=== PATIENT | female | born 1950 | race Caucasian/White ===

== ENCOUNTER 2016-09-11 10:32 | Outpatient (CLI) | payer MEDICARE, BC ==
[2016-09-11 11:30] LABS: Bilirubin Negative (Negative); Blood, Urine Small (Negative); Clarity Cloudy (Clear); Glucose, Urine (Dipstick) Negative (Negative); Leukocyte Negative (Negative); Nitrite Positive (Negative); Protein, Urine (Dipstick) Negative (Neg-Trace); Specific Gravity, Urine 1.015 (1.005-1.030); pH, Urine 6.5 (5.0-9.0)
[2016-09-11 11:55] LABS: Bacteria/HPF 3+ HPF (None Seen); RBC/HPF 0-3 HPF (0-3); Squamous Epithelial 0-3 HPF (0-3); WBC/HPF 0-3 HPF (0-3)
[2016-09-11 12:06] LABS: ALT (SGPT) 13 U/L (8-55); AST (SGOT) 12 U/L (5-34); Albumin 4.6 g/dL (3.4-4.8); Alkaline Phosphatase 73 U/L (40-150); Anion Gap 14 mmol/L (10-20); BUN (Urea Nitrogen) 11 mg/dL (9.8-20.1); Calc. Creatinine Clearance 0 mL/min (70-130); Calcium 9.4 mg/dL (7.8-10.44); Carbon Dioxide 28 mmol/L (23-31); Cardiac Risk 5.7 (Less than 4.5); Chloride 105 mmol/L (98-107); Cholesterol 246 mg/dl (< 200 Desired); Estimated GFR-MDRD 71; Globulin 2.6 g/dL (2.4-3.5); Glucose 85 mg/dL (80-115); HDL Cholesterol 43 mg/dL (>60 Neg Risk); LDL Cholesterol, Calculated 173 mg/dL; Potassium 4.2 mmol/L (3.5-5.1); Protein, Total 7.2 g/dL (6.0-8.3); Sodium 143 mmol/L (136-145); Triglycerides 151 mg/dL (Less than 150)
[2016-09-11 12:34] LABS: #Eosinphils 0.2 thou/uL (0.0-0.7); #Lymphocytes 1.9 thou/uL (1.20-3.40); #Monocytes 0.4 thou/uL (0.11-0.59); #Neutrophils 3.4 thou/uL (1.40-6.50); %Basophils 0.6 % (0.0-1.0); %Eosinophils 3.1 % (0.0-10.0); %Lymphocytes 32.2 % (21.0-51.0); Hemoglobin 17.1 g/dL (12.0-16.0); Mean Corpuscular HGB CONC 34.4 g/dL (32.0-36.0); Mean Corpuscular Hemoglobin 35.1 pg (27.0-31.0); Mean Platelet Volume 7.6 fL (7.4-10.4); Platelet Count 142 thou/uL (130-400); Red Blood Cell (RBC) Count 4.87 mill/uL (4.20-5.40); White Blood Cell (WBC) Count 5.9 thou/uL (4.8-10.8)
[2016-09-11 13:27] LABS: MDiff Complete? YES; Macrocytosis SLIGHT = 6-15 cells (100X) (0-5/hpf); PLT Morphology Comment Appears Adequate
== END 2016-09-11 10:33 | disposition home or self-care (01) ==
LOC: HPCALD 10:32
PROVIDERS: ATTEND Family Medicine
DX: E78.5 Hyperlipidemia, unspecified (principal); I10 Essential (primary) hypertension; R82.90 Unspecified abnormal findings in urine
CPT/HCPCS: 36415; 80053; 80061; 81001; 85025

== ENCOUNTER 2016-11-12 11:33 | Outpatient (CLI) | payer MEDICARE, BC | END 2016-11-12 11:34 | disposition home or self-care (01) | LOC: HPCALD 11:33 | PROVIDERS: ATTEND Family Medicine | DX: N39.0 Urinary tract infection, site not specified (principal) | CPT/HCPCS: 87077; 87086; 87186 ==

== ENCOUNTER 2016-11-13 10:04 | Outpatient (CLI) | payer MEDICARE, BC ==
--- NOTE | 2016-11-13 17:46 | ULT ---
ABDOMINAL ULTRASOUND: 11/13/16 Comparison is made with the prior ultrasound of 07/31/15. The liver is 14.7 cm in oblique sagittal length with no space occupying lesions seen. There are no d ilated intrahepatic ducts. The gallbladder contains no evidence of stones or wall thickening. The co mmon bile duct, however, measures 8 to 9 mm in caliber which is large. No focal pancreatic lesions w ere seen, though not all sections were seen equally well. The right kidney is 10.1 cm in length and the left kidney is 10.5 cm. Both appear normal. The spleen is normal in size. Regarding the patient's abdominal aorta, there is a distal abdominal aortic aneurysm below the level of the renal arteries. It extends to but not beyond the bifurcation. It measures 3.2 cm in width, c ompared to 2.8 cm previously. The proximal and mid abdominal aorta had normal measurements for age. IMPRESSION: 3.2 cm distal abdominal aortic aneurysm. Slightly larger than in 2016 when it measured 2.8 cm. POS: HOME
== END 2016-11-13 10:05 | disposition home or self-care (01) ==
LOC: BURULT 10:04
PROVIDERS: ATTEND Family Medicine
DX: I71.4 Abdominal aortic aneurysm, without rupture (principal)
CPT/HCPCS: 76700

== ENCOUNTER 2017-11-19 09:16 | Outpatient (CLI) | payer MEDICARE, BC ==
--- NOTE | 2017-11-19 19:57 | ULT ---
ABDOMINAL AORTA ULTRASOUND 11/19/17 Ultrasonography of the abdominal aorta was performed and compared with the 11/13/16 study. A 2016 exam showed a distal abdominal aortic aneurysm that was 2.8 cm in width. In October 2016, it was 3.2 cm in w idth. The size of the aneurysm has continued to increase somewhat. Today's exam shows the maximal width to be about 4.2 cm. It is about 7 cm in length and does not extend beyond the bifurcation. The diameter of the proximal aorta was no more than 2.8 cm and mid abdominal aorta 3.5 cm. Mural thrombus is prese nt in the aneurysm but there is still ample lumen that is patent. IMPRESSION: Further dilation of the distal abdominal aortic aneurysm now measuring a maximum of 4.2 cm in diamete r, definite increase since the October study last year. Code T POS: HOME
== END 2017-11-19 09:17 | disposition home or self-care (01) ==
LOC: BURULT 09:16
PROVIDERS: ATTEND Family Medicine
DX: I71.4 Abdominal aortic aneurysm, without rupture (principal)
CPT/HCPCS: 76775

== ENCOUNTER 2018-01-14 10:08 | Outpatient (CLI) | payer MEDICARE, BC ==
--- NOTE | 2018-01-14 21:05 | ULT ---
LEFT BREAST ULTRASOUND: 01/14/18 Ultrasonography over an area of interest was performed. There is an oblong hypodensity just inferior to the areolar measuring 1.9 x 0.7 x 2.1 cm. The patient states that it uses pus and so is presumed t o be an abscess. From an ultrasonographic standpoint, it could be an abscess or mass, however, there is no blood flow in it. IMPRESSION: Presumed ovoid-shaped abscess. See above. POS: HOME
== END 2018-01-14 10:09 | disposition home or self-care (01) ==
LOC: BURULT 10:08
PROVIDERS: ATTEND Family Medicine
DX: N61.1 Abscess of the breast and nipple (principal)

== ENCOUNTER 2018-01-21 10:29 | Outpatient (CLI) | payer MEDICARE, BC | END 2018-01-21 10:30 | disposition home or self-care (01) | LOC: BURCT 10:29 | PROVIDERS: ATTEND Internal Medicine Cardiovascular Disease | DX: Z01.818 Encounter for other preprocedural examination (principal); I71.4 Abdominal aortic aneurysm, without rupture | CPT/HCPCS: 36415; 74175; 82565 ==

== ENCOUNTER 2018-08-05 09:45 | Outpatient (CLI) | payer MEDICARE, BC ==
--- NOTE | 2018-08-05 17:57 | ULT ---
GALLBLADDER ULTRASOUND: 08/05/2018 HISTORY/TECHNIQUE: Ultrasonography of the right upper quadrant is performed for evaluation of pain. FINDINGS: The liver is minimally generous in size, measuring 16.2 cm in oblique sagittal length. It is somewha t echodense, so the possibility of fatty infiltration is raised. There are no dilated ducts or annette s within it. The visible portions of the pancreas are unremarkable. The gallbladder has a trace of sludge in the neck, but no stones or wall thickening. The common bile duct, however, is a bit large, at 7 mm in caliber. No intrahepatic ductal dilation is seen, however. The right kidney appears nor mal and is 9.9 cm in length. IMPRESSION: 1. Slight enlargement of the common bile duct, significance unknown. Depending upon the clinical sy mptoms, a CT might be needed to clear the area. 2. Minimal sludge in the gallbladder, probably not significant. 3. Borderline hepatic size with possible fatty infiltration. CODE T POS: HOME
== END 2018-08-05 09:46 | disposition home or self-care (01) ==
LOC: BURULT 09:45
PROVIDERS: ATTEND Internal Medicine Gastroenterology
DX: I71.9 Aortic aneurysm of unspecified site, without rupture (principal); K21.9 Gastro-esophageal reflux disease without esophagitis; R19.4 Change in bowel habit; R11.2 Nausea with vomiting, unspecified; R10.9 Unspecified abdominal pain; Q44.5 Other congenital malformations of bile ducts
CPT/HCPCS: 76705

== ENCOUNTER 2018-08-26 09:47 | Outpatient (CLI) | payer MEDICARE, BC ==
[2018-08-26] MEDS ORDERED: Iopamidol 370 76% 125 ML VIAL FS ONE (11:42)
--- NOTE | 2018-08-26 19:31 | CT ---
CT ANGIO OF THE ABDOMEN AND PELVIS WITH AND WITHOUT CONTRAST 08/26/18 Comparison is made with the prior study dated 05/20/18 from [facility] in [place]. Axial slices were acquired after giving a bolus of IV contrast and then coronal and sagittal reconstructions were done . An initial noncontrast scan of the abdomen and pelvis was done as well. There is good opacification of the abdominal aorta. Again noted is the known abdominal aortic aneurysm that starts a few centime ters below the renal arteries and then extends to but not beyond the bifurcation of the aorta. The AP diameter of the aneurysm was once again measured at 4.4 cm, so there has been no belt changer time. T he celiac artery, SMA and JUSTINE can all be seen originating from the aorta and filling well with contra st. Both renal arteries fill well. The lung bases are clear except for some basilar atelectasis or scarring. There are no effusions. The liver and spleen seem a bit generous in size but unchanged over the interval. No space occupying dis ease was seen in them, the pancreas, the adrenal glands, or the kidneys. The pelvic slices showed no pelvic masses, inflammatory changes, or free fluid. Some sigmoid diverti cula were evident as well as diverticula of the left colon in general. IMPRESSION: 1. Infrarenal abdominal aortic aneurysm with no significant change since the prior scan. Maximal AP diameter measured at 4.4 cm just as before. 2. No other acute abdominal or pelvic findings. COMMENT: If future scans are planned, one might consider if there is a true need for them to be done with and without contrast. One could decrease the radiation burden to the patient by doing only a s can with contrast, as the additional info gleaned from a non-contrast scan is probably small. POS: HOME
== END 2018-08-26 09:48 | disposition home or self-care (01) ==
LOC: BURCT 09:47
PROVIDERS: ATTEND Thoracic Surgery (Cardiothoracic Vascular Surgery)
DX: Z01.812 Encounter for preprocedural laboratory examination (principal); I71.4 Abdominal aortic aneurysm, without rupture
CPT/HCPCS: 74174; 82565; Q9967

== ENCOUNTER 2019-03-16 09:56 | Outpatient (CLI) | payer MEDICARE, BC ==
--- NOTE | 2019-03-16 15:33 | CT ---
CT ABDOMEN AND PELVIS WITH CONTRAST: DATE: 03/16/2019. FINDINGS: Comparison is made with the prior CT angio of the abdomen dated 08/26/2018. The patient has a known in frarenal abdominal aortic aneurysm. Today's study shows a slight increase in the size of the infrarenal abdominal aortic aneurysm since t August 2018 scan. Slices were selected on today's study and the August study exactly in the same anatom ical location, L3 levels. Measurements found were as follows: September 07, 2018: 4.4 cm AP diameter, 4.5 cm wide. Today: 4.7 cm AP diameter, 4.9 cm wide. Thus, the height and width of the aneurysm measured in the transverse plane has increased by 0.3 to 0 .4 cm over the 6-month interval. The total superior inferior extent does not appear to have changed significantly. The aneurysm does not extend beyond the bifurcation of the aorta, though there is foc al dilation of the right common iliac artery just above its termination into internal and external br anches. The transverse diameter of the vessel at that point is 1.7 cm. The celiac artery, SMA, JUSTINE, and renal arteries all seem to fill normally. Elsewhere, the lung bases are clear except for dependent atelectasis. The liver, pancreas, gallbladd er, and kidneys showed no acute changes. The spleen is rather long and narrow, being 16 cms from top to bottom, but changes over time are only slight. The left adrenal gland is slightly bulbous, but n o different than before. There is no dilation of bowel or inflammatory streaking around bowel. The cecum and much of the righ t colon seems to have some mild chronic wall thickening, though it looks no different than the prior scan. Diverticulosis is present in this patient, but no diverticulitis was seen. There is no free a ir or free fluid. CT of the pelvis shows no pelvic masses, free fluid, or inflammatory change. Some mild degenerative changes are seen in the lumbar spine. IMPRESSION: 1. Infrarenal abdominal aortic aneurysm with slight dilation since the last study. See comparison o f measurements above. 2. The patient's spleen is rather long and narrow with the superior inferior extent measuring 16 cm. This is similar to the prior exam. Looking at a 2018 study, it was about 15 cm. Thus, it seems re asonably stable over time, though prominent in size. 3. Chronic wall thickening of the right colon. This can also be seen back to 2018 studies and reall y has not changed at all. POS: HOME
== END 2019-03-16 09:57 | disposition home or self-care (01) ==
LOC: BURCT 09:56
PROVIDERS: ATTEND Thoracic Surgery (Cardiothoracic Vascular Surgery)
DX: Z01.818 Encounter for other preprocedural examination (principal); I71.4 Abdominal aortic aneurysm, without rupture; K63.89 Other specified diseases of intestine; D73.89 Other diseases of spleen
CPT/HCPCS: 36415; 74177; 82565

== ENCOUNTER 2019-10-12 09:50 | Outpatient (CLI) | payer MEDICARE, BC ==
--- NOTE | 2019-10-13 07:10 | CT ---
CT ANGIO OF THE ABDOMEN AND PELVIS WITH CONTRAST: 10/12/[address] of the abdomen was performed and compared with a 08/26/18 study. The patient has a known abdominal aortic aneurysm. There is very good opacification of the aorta. Again noted is a large infrarenal abdominal aortic ane urysm. It begins just below the level of the renal arteries and extends all the way to the bifurcatio n. The iliac arteries are not enlarged. There is a large amount of pleural thrombus within it. This a neurysm has grown since last year. It now measures about 5 cm in diameter compared to 4.5 cm last yea r. The celiac and SMA fill normally. The renal arteries both fill. The JUSTINE feels very weakly. There is a 2.5 cms area of asymmetric tissue in the left breast on the top most slice. While this ma y just be tissue asymmetry, if the patient has not not had a mammogram in recent times, this might be considered to be sure there is no pathology here. The lung bases show some dependent atelectasis. The liver showed no acute changes and is mildly generous in size but no different than before. The sp luis miguel; however, has become even larger. Previously it was about 16 cm in length. Today is it just over 19 cm long. Better seen today than before, there does appear to be a 1.2 cm nodule in the left adrenal gland. I b elieve there are some fatty elements in it making it likely that it is an adenoma. It does not appear to have changed much over time. The pancreas and gallbladder are unremarkable. The kidneys show no m ass or hydronephrosis. CT of the pelvis shows no pelvic masses, fluid collections, or acute inflammatory changes. Some diver ticula were noted in the colon. There is some mild chronic thickening of the wall of the cecum and ri ght colon, but it is no different than last year. IMPRESSION: 1. 5 cm infrarenal abdominal aortic aneurysm. It has increased in diameter by at least 0.5 cm ov er the interval. 2. Marked splenomegaly which has worsened since last year. 3. Probable small 1.2 cm left adrenal mass with little change of address clerk time. The odds of its signifi cance are somewhat low. Given some fatty elements being detected and no growth over the last year, I am not sure if doing a dedicated adrenal protocol scan is necessary. I would merely monitor it on the patient's subsequent scans that deal with her aneurysm. 4. 2.5 cms area of asymmetric tissue in the left breast, not seen on the prior scan, but today's sca n may start slightly higher than the previous one. I would recommend following this up to be sure th ere is no pathology here. POS: HOME
== END 2019-10-12 09:51 | disposition home or self-care (01) ==
LOC: BURCT 09:50
PROVIDERS: ATTEND Thoracic Surgery (Cardiothoracic Vascular Surgery)
DX: I71.4 Abdominal aortic aneurysm, without rupture (principal); R16.1 Splenomegaly, not elsewhere classified; N64.89 Other specified disorders of breast
CPT/HCPCS: 74174; 82565

== ENCOUNTER 2020-03-30 10:08 | Outpatient (CLI) | payer MEDICARE, BC ==
[2020-03-30] MEDS ORDERED: Iopamidol 370 76% 100 ML VIAL ONE (11:40)
--- NOTE | 2020-03-30 13:53 | CT ---
CT AORTIC DISSECTION PROTOCOL 03/30/20 COMPARISON: Comparison is made with the CT angio of the abdomen and pelvis dated 10/12/19. There is very good opacification of the aorta, as well as the pulmonary vessels. As before, an infrar enal abdominal aortic aneurysm is present that extends to but not beyond the bifurcation of the aorta . The widest dimensions measured today were about 5 cm in AP diameter and about 5.4 cm in width. On t he prior scan, the maximal dimensions were 5 cm AP and 5.1 cm in width. Thus, it may have increased i n size very slightly. As before, there does appear to be a very slight false channel flow within the a portion of the thrombus on the left side. The appearance is similar to before. The celiac, SMA, JUSTINE and renal arteries all appear to fill normally as do the common iliac arteries. Both internal iliac arteries fill appropriately. The thoracic aorta shows arteriosclerotic change but no aneurysm or dissection. No portion of the aor ta shows signs of dissection. There is good filling of the pulmonary arteries which show no filling d efects to suggest emboli. Of considerable note, is a large amount of mediastinal adenopathy, located just to the left of the ao rtic arch. No prior scan covers this area, so there is no comparison available. The largest nodes trey sure 2.5 cm in size. I do not see significant amounts of subcarinal adenopathy or inferior tracheobro nchial adenopathy. The lungs show cystic changes throughout, particularly in the apices, that are pre sumed to be emphysematous in nature. There is diffuse prominence of markings without any focal infilt rate, pulmonary mass or effusion. As was mentioned on the prior study, there is an area of asymmetric breast tissue in the left breast. Today, it measures about 2.8 cm in size. If this has not been purs ued, it should be. It was not seen completely on the prior study. Previously, it measures about 2.4 t o 2.5 cm in size, but on an image that did cover all of it. The liver and spleen show no space occupying lesions. The pancreas was unremarkable. No stones were s een in the gallbladder. There may be some mild increase in nodes about the splenic hilum, but I canno t be sure if these are small nodes or slightly dilated blood vessels. The kidneys show no mass or hyd ronephrosis. The visible areas of bowel show no dilation to suggest obstruction. Some scattered diver ticula are seen in the colon. There might be some chronic thickening in the lower right colon. IMPRESSION: 1. Large infrarenal aortic aneurysm that seems slightly wider (5.4 cm) than on the prior exam (5 .1 cm). 2. No evidence of aortic dissection or pulmonary embolism. 3. Significant mediastinal adenopathy located just to the left of the aortic arch. 4. Asymmetric tissue in the left breast as mentioned previously. Cannot rule out a mass. If this has not been investigated further, I strongly recommend that one should do so. Code T POS: HOME
== END 2020-03-30 10:09 | disposition home or self-care (01) ==
LOC: BURCT 10:08
PROVIDERS: ATTEND Thoracic Surgery (Cardiothoracic Vascular Surgery)
DX: I71.4 Abdominal aortic aneurysm, without rupture (principal); R59.0 Localized enlarged lymph nodes; N64.89 Other specified disorders of breast
CPT/HCPCS: 71275; 74174; Q9967

== ENCOUNTER 2020-05-30 11:25 | Outpatient (CLI) | payer MEDICARE, BC ==
--- NOTE | 2020-05-30 19:51 | RAD ---
CHEST TWO VIEWS: 05/30/20 Comparison is made with the 09/15/08 study. In the interval, there is a new contour abnormality in the aorticopulmonary window measuring about 2. 7 cm in size. Given the recent CT PET scan, it is probably an enlarged node. There is perhaps some sl ight prominence of the right lung hilum. There could be a little adenopathy here, however, the overal l findings show clear lungs with no gross pulmonary nodules and no effusions. The heart size is tim l. IMPRESSION: Suspicion of an enlarged node in the aorticopulmonary window. POS: HOME
== END 2020-05-30 11:26 | disposition home or self-care (01) ==
LOC: BUREKG 11:25
PROVIDERS: ATTEND Thoracic Surgery (Cardiothoracic Vascular Surgery)
DX: R59.0 Localized enlarged lymph nodes (principal)
CPT/HCPCS: 71046; 93005; 93010

== ENCOUNTER 2020-06-30 11:15 | Outpatient (CLI) | payer MEDICARE, BC ==
[2020-06-30 12:18] LABS: #Eosinphils 0.1 thou/uL (0.0-0.7); #Lymphocytes 0.8 thou/uL (1.20-3.40); #Monocytes 0.4 thou/uL (0.11-0.59); #Neutrophils 4.3 thou/uL (1.40-6.50); %Basophils 0.8 % (0.0-1.0); %Eosinophils 1.6 % (0.0-10.0); %Lymphocytes 13.6 % (21.0-51.0); %Monocytes 7.7 % (0.0-10.0); %Neutrophils 76.3 % (42.0-75.0); Hemoglobin 15.9 g/dL (12.0-16.0); Mean Corpuscular HGB CONC 33.7 g/dL (32.0-36.0); Mean Corpuscular Hemoglobin 33.5 pg (27.0-31.0); Mean Corpuscular Volume 99.4 fL (78.0-98.0); Mean Platelet Volume 8.8 fL (7.4-10.4); Platelet Count 97 thou/uL (130-400); RBC Distribution Width 12.1 % (11.5-14.5); Red Blood Cell (RBC) Count 4.74 mill/uL (4.20-5.40); White Blood Cell (WBC) Count 5.6 thou/uL (4.8-10.8)
[2020-06-30 12:19] LABS: MDiff Complete? YES
[2020-06-30 12:29] LABS: ALT (SGPT) 32 U/L (8-55); AST (SGOT) 19 U/L (5-34); Albumin 4.4 g/dL (3.4-4.8); Alkaline Phosphatase 60 U/L (40-110); Anion Gap 15 mmol/L (10-20); BUN (Urea Nitrogen) 8 mg/dL (9.8-20.1); Bilirubin, Total 0.7 mg/dL (0.2-1.2); Calc. Creatinine Clearance 0 mL/min (70-130); Calcium 9.5 mg/dL (7.8-10.44); Carbon Dioxide 30 mmol/L (23-31); Chloride 101 mmol/L (98-107); Glucose 116 mg/dL (80-115); Potassium 4.1 mmol/L (3.5-5.1); Protein, Total 6.4 g/dL (5.8-8.1); Sodium 142 mmol/L (136-145)
[2020-06-30 23:40] LABS: SARS-CoV-2 PCR by NAA Not Detected (NotDetected)
== END 2020-06-30 11:16 | disposition home or self-care (01) ==
LOC: BUREKG 11:15
PROVIDERS: ATTEND Surgery
DX: Z01.818 Encounter for other preprocedural examination (principal); K38.8 Other specified diseases of appendix; Z20.822 Contact with and (suspected) exposure to COVID-19
CPT/HCPCS: 36415; 80053; 85025; 87635; 93005; 93010; U0003; U0005

== ENCOUNTER 2020-07-05 20:20 | Emergency (ER) | payer MEDICARE, BC ==
[~2020-07-05 20:20] MED LIST: Iopamidol 370 76% 100 ML VIAL ONE
[2020-07-05] MEDS ORDERED: Ondansetron PF 4 MG/2 ML Vial ONE ×2 (21:08→22:43)
[2020-07-05] MEDS ORDERED: Fentanyl 100 MCG/2 ML VIAL ONE (21:08)
[2020-07-05 21:16] LABS: #Basophils 0.1 thou/uL (0.0-0.2); #Lymphocytes 0.5 thou/uL (1.20-3.40); #Monocytes 0.7 thou/uL (0.11-0.59); #Neutrophils 10.3 thou/uL (1.40-6.50); %Basophils 0.5 % (0.0-1.0); %Lymphocytes 4.4 % (21.0-51.0); %Monocytes 5.6 % (0.0-10.0); %Neutrophils 89.5 % (42.0-75.0); Hemoglobin 17.2 g/dL (12.0-16.0); Mean Corpuscular HGB CONC 34.4 g/dL (32.0-36.0); Mean Corpuscular Hemoglobin 33.9 pg (27.0-31.0); Mean Corpuscular Volume 98.5 fL (78.0-98.0); Mean Platelet Volume 8.6 fL (7.4-10.4); Platelet Count 96 thou/uL (130-400); RBC Distribution Width 11.8 % (11.5-14.5); Red Blood Cell (RBC) Count 5.07 mill/uL (4.20-5.40); White Blood Cell (WBC) Count 11.5 thou/uL (4.8-10.8)
[2020-07-05 21:17] LABS: MDiff Complete? YES
[2020-07-05 21:23] LABS: ALT (SGPT) 60 U/L (8-55); AST (SGOT) 41 U/L (5-34); Albumin 4.7 g/dL (3.4-4.8); Alkaline Phosphatase 72 U/L (40-110); Anion Gap 16 mmol/L (10-20); BUN (Urea Nitrogen) 7 mg/dL (9.8-20.1); Bilirubin, Total 1.1 mg/dL (0.2-1.2); Calc. Creatinine Clearance 0 mL/min (70-130); Calcium 9.3 mg/dL (7.8-10.44); Carbon Dioxide 26 mmol/L (23-31); Chloride 102 mmol/L (98-107); Globulin 2.6 g/dL (2.4-3.5); Glucose 222 mg/dL (80-115); Lipase 13 U/L (8-78); Potassium 3.6 mmol/L (3.5-5.1); Protein, Total 7.3 g/dL (5.8-8.1); Sodium 140 mmol/L (136-145)
[2020-07-05] MEDS ORDERED: HYDROmorphone 0.5 MG/0.5 ML SYRINGE ONE (23:43)
== END 2020-07-06 00:15 | disposition home or self-care (01) ==
LOC: BURERS 20:20
DX: I71.4 Abdominal aortic aneurysm, without rupture (principal); G89.18 Other acute postprocedural pain; I10 Essential (primary) hypertension
CPT/HCPCS: 71045; 74177; 80053; 83605; 83690; 84484; 85025; 93005; 94760; 96374; 96375; 96376; J1170; J2405; J3010; Q9967

== ENCOUNTER 2020-07-21 10:07 | Outpatient (CLI) | payer MEDICARE, BC | END 2020-07-21 10:08 | disposition home or self-care (01) | LOC: BURCT 10:07 | PROVIDERS: ATTEND Surgery | DX: R10.11 Right upper quadrant pain (principal); I71.3 Abdominal aortic aneurysm, ruptured; K63.89 Other specified diseases of intestine; R91.8 Other nonspecific abnormal finding of lung field; J90 Pleural effusion, not elsewhere classified | CPT/HCPCS: 74177 ==

== ENCOUNTER 2020-10-10 08:55 | Outpatient (CLI) | payer MEDICARE, BC ==
[2020-10-10] MEDS ORDERED: Iopamidol 370 76% 100 ML VIAL ONE (12:59)
== END 2020-10-10 08:56 | disposition home or self-care (01) ==
LOC: BURCT 08:55
PROVIDERS: ATTEND Clinical Nurse Specialist Adult Health
DX: I71.4 Abdominal aortic aneurysm, without rupture (principal)
CPT/HCPCS: 74174; Q9967

== ENCOUNTER 2021-01-13 11:40 | Emergency (ER) | payer MEDICARE, BC ==
[2021-01-13 23:44] LABS: SARS-CoV-2 PCR by NAA Not Detected (NotDetected)
== END 2021-01-13 12:26 | disposition home or self-care (01) ==
LOC: BURERS 11:40
DX: I10 Essential (primary) hypertension (principal); E78.5 Hyperlipidemia, unspecified; K57.92 Diverticulitis of intestine, part unspecified, without perforation or abscess without bleeding; F17.210 Nicotine dependence, cigarettes, uncomplicated; Z20.822 Contact with and (suspected) exposure to COVID-19; Z86.79 Personal history of other diseases of the circulatory system
CPT/HCPCS: U0003; U0005; 99283

== ENCOUNTER 2021-03-14 08:56 | Outpatient (CLI) | payer MEDICARE, BC | END 2021-03-14 08:57 | disposition home or self-care (01) | LOC: BURCT 08:56 | PROVIDERS: ATTEND Family Medicine | DX: R10.10 Upper abdominal pain, unspecified (principal); Z86.79 Personal history of other diseases of the circulatory system | CPT/HCPCS: 74177 ==

== ENCOUNTER 2021-03-28 11:26 | Outpatient (CLI) | payer MEDICARE, BC | END 2021-03-28 11:27 | disposition home or self-care (01) | LOC: BURCT 11:26 | PROVIDERS: ATTEND Family Medicine | DX: R07.81 Pleurodynia (principal); R59.0 Localized enlarged lymph nodes | CPT/HCPCS: 71260 ==

== ENCOUNTER 2021-04-20 11:12 | Emergency (ER) | payer MEDICARE, BC ==
[2021-04-20] MEDS ORDERED: traMADol HCl 50 MG TAB ONE (12:24)
[2021-04-20] MEDS ORDERED: Ibuprofen 800 MG TAB ONE (12:25)
[2021-04-20 12:45] LABS: Anion Gap 14 mmol/L (10-20); BUN (Urea Nitrogen) 10 mg/dL (9.8-20.1); Calc. Creatinine Clearance 0 mL/min (70-130); Carbon Dioxide 26 mmol/L (23-31); Chloride 105 mmol/L (98-107); Potassium 3.9 mmol/L (3.5-5.1); Sodium 141 mmol/L (136-145)
[2021-04-20 12:46] LABS: ALT (SGPT) 16 U/L (8-55); AST (SGOT) 16 U/L (5-34); Albumin 4.3 g/dL (3.4-4.8); Alkaline Phosphatase 77 U/L (40-110); Bilirubin, Total 1.1 mg/dL (0.2-1.2); Calcium 9.7 mg/dL (7.8-10.44); Globulin 2.1 g/dL (2.4-3.5); Glucose 95 mg/dL (80-115); Protein, Total 6.4 g/dL (5.8-8.1)
[2021-04-20 12:48] LABS: #Basophils 0.1 thou/uL (0.0-0.2); #Eosinphils 0.1 thou/uL (0.0-0.7); #Monocytes 0.4 thou/uL (0.11-0.59); #Neutrophils 3.4 thou/uL (1.40-6.50); %Eosinophils 2.5 % (0.0-10.0); %Lymphocytes 20.2 % (21.0-51.0); %Monocytes 7.9 % (0.0-10.0); %Neutrophils 68.4 % (42.0-75.0); Hemoglobin 14.6 g/dL (12.0-16.0); Mean Corpuscular HGB CONC 33.3 g/dL (32.0-36.0); Mean Corpuscular Hemoglobin 32.1 pg (27.0-31.0); Mean Corpuscular Volume 96.4 fL (78.0-98.0); Mean Platelet Volume 9.3 fL (7.4-10.4); Platelet Count 65 thou/uL (130-400); Platelet Morphology Comment Appears Decreased; RBC Distribution Width 12.9 % (11.5-14.5); Red Blood Cell (RBC) Count 4.56 mill/uL (4.20-5.40)
[2021-04-20 12:58] LABS: MDiff Complete? YES
[2021-04-20 13:05] LABS: Bilirubin Negative (Negative); Blood, Urine Negative (Negative); Clarity Clear (Clear); Glucose, Urine (Dipstick) Negative (Negative); Ketone, Urine Negative (Negative); Leukocyte Negative (Negative); Nitrite Negative (Negative); Protein, Urine (Dipstick) Negative (Neg-Trace); Urobilinogen 0.2 mg/dL (Less than 2); pH, Urine 6.5 (5.0-9.0)
== END 2021-04-20 13:30 | disposition home or self-care (01) ==
LOC: BURERS 11:12
DX: B09 Unspecified viral infection characterized by skin and mucous membrane lesions (principal); I10 Essential (primary) hypertension; E78.5 Hyperlipidemia, unspecified; F17.210 Nicotine dependence, cigarettes, uncomplicated; Z79.82 Long term (current) use of aspirin
CPT/HCPCS: 36415; 80053; 81003; 85025; 86140; 99283

== ENCOUNTER 2021-10-26 09:03 | Outpatient (CLI) | payer MEDICARE, BC ==
[2021-10-26] MEDS ORDERED: Iopamidol 370 76% 100 ML VIAL FS ONE (09:04)
== END 2021-10-26 09:04 | disposition home or self-care (01) ==
LOC: BURCT 09:03
PROVIDERS: ATTEND Physician Assistant Medical
DX: R10.32 Left lower quadrant pain (principal); R10.11 Right upper quadrant pain; R19.4 Change in bowel habit; K76.0 Fatty (change of) liver, not elsewhere classified; D69.6 Thrombocytopenia, unspecified; R16.1 Splenomegaly, not elsewhere classified; R59.0 Localized enlarged lymph nodes; I74.5 Embolism and thrombosis of iliac artery; K57.30 Diverticulosis of large intestine without perforation or abscess without bleeding; Z86.79 Personal history of other diseases of the circulatory system; Z85.09 Personal history of malignant neoplasm of other digestive organs; Z95.828 Presence of other vascular implants and grafts
CPT/HCPCS: 74177; Q9967

== ENCOUNTER 2022-01-01 10:06 | Outpatient (CLI) | payer MEDICARE, BC | END 2022-01-01 10:07 | disposition home or self-care (01) | LOC: BUREKG 10:06 | PROVIDERS: ATTEND Surgery | DX: Z01.818 Encounter for other preprocedural examination (principal); K80.20 Calculus of gallbladder without cholecystitis without obstruction; Z20.822 Contact with and (suspected) exposure to COVID-19 | CPT/HCPCS: 93005; 93010; U0003; U0005 ==

== ENCOUNTER 2022-04-17 16:38 | Inpatient (IN) | payer MEDICARE, BC ==
[2022-04-17] MEDS ORDERED: PYRIDOXINE HCL 50 MG PO SCH (21:00)
[2022-04-17] MEDS: Thiamine 100 MG TAB PO SCH (21:45)
[2022-04-17] MEDS: Multivit, Therapeutic 1 TAB PO SCH (21:46)
[2022-04-17] MEDS: Folic Acid 1 MG TAB PO SCH (21:46)
[2022-04-18] MEDS: NIFEdipine XL 30 MG TAB PO SCH ×2 (08:53→20:24)
[2022-04-18] MEDS: Cyanocobalamin (Vitamin B-12) 1,000 MCG TAB PO SCH (08:53)
[2022-04-18] MEDS: Losartan 25 MG TAB PO SCH (08:53)
[2022-04-18] MEDS: Aspirin 81 mg Enteric Coated Tablet PO SCH (08:53)
[2022-04-18] MEDS ORDERED: FLU VACC QS2022-23(65YR UP)/PF 240 MCG/0.7 ML SYRINGE IM ONE (09:00)
[2022-04-18] MEDS: Thiamine 100 MG TAB PO SCH (20:23)
[2022-04-18] MEDS: Multivit, Therapeutic 1 TAB PO SCH (20:23)
[2022-04-18] MEDS: Folic Acid 1 MG TAB PO SCH (20:24)
[2022-04-18] MEDS: Acetaminophen 325 MG TAB PO PRN (20:45)
[2022-04-19 05:41] LABS: ALT (SGPT) 13 U/L (8-55); AST (SGOT) 12 U/L (5-34); Albumin 3.8 g/dL (3.4-4.8); Alkaline Phosphatase 62 U/L (40-110); Anion Gap 11 mmol/L (10-20); BUN (Urea Nitrogen) 14 mg/dL (9.8-20.1); Bilirubin, Total 0.7 mg/dL (0.2-1.2); Calc. Creatinine Clearance 43 mL/min (70-130); Calcium 11.4 mg/dL (7.8-10.44); Carbon Dioxide 26 mmol/L (23-31); Chloride 108 mmol/L (98-107); Estimated GFR 62; Globulin 1.8 g/dL (2.4-3.5); Glucose 94 mg/dL (80-115); Magnesium 1.8 mg/dL (1.6-2.6); Potassium 3.9 mmol/L (3.5-5.1); Protein, Total 5.6 g/dL (5.8-8.1); Sodium 141 mmol/L (136-145)
[2022-04-19 06:30] LABS: #Eosinphils 0.5 thou/uL (0.0-0.7); #Lymphocytes 0.8 thou/uL (1.20-3.40); #Monocytes 0.3 thou/uL (0.11-0.59); #Neutrophils 1.9 thou/uL (1.40-6.50); %Basophils 0.8 % (0.0-1.0); %Eosinophils 13.3 % (0.0-10.0); %Lymphocytes 21.9 % (21.0-51.0); %Monocytes 9.2 % (0.0-10.0); %Neutrophils 54.9 % (42.0-75.0); Hemoglobin 10.5 g/dL (12.0-16.0); Mean Corpuscular HGB CONC 34.8 g/dL (32.0-36.0); Mean Corpuscular Hemoglobin 31.5 pg (27.0-31.0); Mean Corpuscular Volume 90.4 fl (78.0-98.0); Mean Platelet Volume 8.4 fL (7.4-10.4); Platelet Count 72 10x3/uL (130-400); Platelet Morphology Comment Appears Decreased; RBC Distribution Width 12.5 % (11.5-14.5); RBC Morphology No PLATELETS CLUMPING SEEN; Red Blood Cell (RBC) Count 3.33 mill/uL (4.20-5.40); White Blood Cell (WBC) Count 3.5 10x3/uL (4.8-10.8)
[2022-04-19 06:32] LABS: MDiff Complete? YES; Manual Diff?? NO
[2022-04-19] MEDS: NIFEdipine XL 30 MG TAB PO SCH ×2 (08:30→21:03)
[2022-04-19] MEDS: Aspirin 81 mg Enteric Coated Tablet PO SCH (08:31)
[2022-04-19] MEDS: Furosemide 20 MG TAB PO SCH (08:31)
[2022-04-19] MEDS: Losartan 25 MG TAB PO SCH (08:31)
[2022-04-19] MEDS: Cyanocobalamin (Vitamin B-12) 1,000 MCG TAB PO SCH (08:32)
[2022-04-19] MEDS: Potassium Chloride 20 MEQ TAB PO SCH (08:32)
[2022-04-19] MEDS: Magnesium Oxide 400 MG TAB PO SCH (08:32)
[2022-04-19] MEDS: Ondansetron ODT 4 MG TAB PO PRN (10:25)
[2022-04-19] MEDS: Acetaminophen 325 MG TAB PO PRN (21:03)
[2022-04-19] MEDS: Folic Acid 1 MG TAB PO SCH (21:04)
[2022-04-19] MEDS: Multivit, Therapeutic 1 TAB PO SCH (21:04)
[2022-04-19] MEDS: Thiamine 100 MG TAB PO SCH (21:04)
[2022-04-20] MEDS: Losartan 25 MG TAB PO SCH (09:33)
[2022-04-20] MEDS: NIFEdipine XL 30 MG TAB PO SCH ×2 (09:33→21:03)
[2022-04-20] MEDS: Aspirin 81 mg Enteric Coated Tablet PO SCH (09:35)
[2022-04-20] MEDS: Potassium Chloride 20 MEQ TAB PO SCH (09:35)
[2022-04-20] MEDS: Cyanocobalamin (Vitamin B-12) 1,000 MCG TAB PO SCH (09:36)
[2022-04-20] MEDS: Furosemide 20 MG TAB PO SCH (09:36)
[2022-04-20] MEDS: Magnesium Oxide 400 MG TAB PO SCH (09:37)
[2022-04-20] MEDS: Thiamine 100 MG TAB PO SCH (21:03)
[2022-04-20] MEDS: Multivit, Therapeutic 1 TAB PO SCH (21:03)
[2022-04-20] MEDS: Folic Acid 1 MG TAB PO SCH (21:03)
[2022-04-21 06:18] LABS: ALT (SGPT) 12 U/L (8-55); AST (SGOT) 11 U/L (5-34); Albumin 3.7 g/dL (3.4-4.8); Alkaline Phosphatase 79 U/L (40-110); Anion Gap 12 mmol/L (10-20); BUN (Urea Nitrogen) 15 mg/dL (9.8-20.1); Bilirubin, Total 0.8 mg/dL (0.2-1.2); Calc. Creatinine Clearance 49 mL/min (70-130); Calcium 11.4 mg/dL (7.8-10.44); Carbon Dioxide 27 mmol/L (23-31); Chloride 103 mmol/L (98-107); Estimated GFR 73; Globulin 1.9 g/dL (2.4-3.5); Glucose 96 mg/dL (80-115); Potassium 3.7 mmol/L (3.5-5.1); Protein, Total 5.6 g/dL (5.8-8.1); Sodium 138 mmol/L (136-145)
[2022-04-21 06:28] LABS: Eosinophils 6 % (0-10); Hemoglobin 9.9 g/dL (12.0-16.0); Lymphocytes 33 % (21-51); MDiff Complete? YES; Mean Corpuscular HGB CONC 35.4 g/dL (32.0-36.0); Mean Corpuscular Volume 90.1 fl (78.0-98.0); Mean Platelet Volume 7.9 fL (7.4-10.4); Monocytes 8 % (0-10); Neutrophil 53 % (42-75); Platelet Count 52 10x3/uL (130-400); Platelet Morphology Comment Appears Decreased; RBC Distribution Width 12.6 % (11.5-14.5); RBC Morphology No PLATELET CLUMPING SEEN; White Blood Cell (WBC) Count 3.4 10x3/uL (4.8-10.8)
[2022-04-21] MEDS: Furosemide 20 MG TAB PO SCH (08:50)
[2022-04-21] MEDS: Potassium Chloride 20 MEQ TAB PO SCH (08:50)
[2022-04-21] MEDS: NIFEdipine XL 30 MG TAB PO SCH ×2 (08:51→20:18)
[2022-04-21] MEDS: Losartan 25 MG TAB PO SCH (08:51)
[2022-04-21] MEDS: Cyanocobalamin (Vitamin B-12) 1,000 MCG TAB PO SCH (08:51)
[2022-04-21] MEDS: Magnesium Oxide 400 MG TAB PO SCH (08:52)
[2022-04-21] MEDS: Aspirin 81 mg Enteric Coated Tablet PO SCH (08:52)
[2022-04-21] MEDS: Ondansetron ODT 4 MG TAB PO PRN (14:30)
[2022-04-21] MEDS: Acetaminophen 325 MG TAB PO PRN ×2 (14:33→23:12)
[2022-04-21] MEDS: Folic Acid 1 MG TAB PO SCH (20:18)
[2022-04-21] MEDS: Multivit, Therapeutic 1 TAB PO SCH (20:18)
[2022-04-21] MEDS: Thiamine 100 MG TAB PO SCH (20:18)
[2022-04-22] MEDS: Magnesium Oxide 400 MG TAB PO SCH (08:24)
[2022-04-22] MEDS: Aspirin 81 mg Enteric Coated Tablet PO SCH (08:24)
[2022-04-22] MEDS: NIFEdipine XL 30 MG TAB PO SCH ×2 (08:24→20:55)
[2022-04-22] MEDS: Cyanocobalamin (Vitamin B-12) 1,000 MCG TAB PO SCH (08:30)
[2022-04-22] MEDS: Losartan 25 MG TAB PO SCH (08:30)
[2022-04-22] MEDS: Furosemide 20 MG TAB PO SCH (08:30)
[2022-04-22] MEDS: Potassium Chloride 20 MEQ TAB PO SCH (08:30)
[2022-04-22] MEDS: Acetaminophen 325 MG TAB PO PRN (17:40)
[2022-04-22] MEDS: Multivit, Therapeutic 1 TAB PO SCH (20:55)
[2022-04-22] MEDS: Thiamine 100 MG TAB PO SCH (20:55)
[2022-04-22] MEDS: Folic Acid 1 MG TAB PO SCH (20:56)
[2022-04-23 06:09] VITALS: TEMP 98.6
[2022-04-23] MEDS: Losartan 25 MG TAB PO SCH (08:09)
[2022-04-23] MEDS: NIFEdipine XL 30 MG TAB PO SCH (08:09)
[2022-04-23] MEDS: Aspirin 81 mg Enteric Coated Tablet PO SCH (08:10)
[2022-04-23] MEDS: Magnesium Oxide 400 MG TAB PO SCH (08:10)
[2022-04-23] MEDS: Furosemide 20 MG TAB PO SCH (08:10)
[2022-04-23] MEDS: Potassium Chloride 20 MEQ TAB PO SCH (08:10)
[2022-04-23] MEDS: Cyanocobalamin (Vitamin B-12) 1,000 MCG TAB PO SCH (08:10)
[2022-04-23 08:11] VITALS: BP 120/60
== END 2022-04-23 10:40 | disposition home or self-care (01) | DRG 948 ==
LOC: BURMED 18:05
PROVIDERS: ADMIT Family Medicine; ATTEND Family Medicine
DX: R53.1 Weakness (principal); E46 Unspecified protein-calorie malnutrition; I10 Essential (primary) hypertension; D69.6 Thrombocytopenia, unspecified; N32.81 Overactive bladder; E83.52 Hypercalcemia; Z68.20 Body mass index [BMI] 20.0-20.9, adult
CPT/HCPCS: 36415; 80053; 83735; 85025; 87811; Q0162